=== PATIENT | female | born 1950 | race American Indian/Alaskan Native ===

== ENCOUNTER 2016-06-09 15:16 | Inpatient (IN) | payer MEDICARE ==
[2016-06-09 16:50] LABS: Basophils % (Auto) 0.4 % (0.0-1.8); Eosinophils % (Auto) 0.1 % (0.0-4.3); Hematocrit 35.6 % (30.3-42.9); Hemoglobin 11.5 gm/dl (10.1-14.3); Mean Corpuscular HGB Conc 32 % (30-34); Mean Corpuscular Hemoglobin 28 pg (28-32); Mean Corpuscular Volume 87 fl (79-97); Platelet Count 163 K/mm3 (140-440); Red Cell Distribution Width 14.2 % (13.2-15.2); White Blood Count 6.5 K/mm3 (4.5-11.0)
[2016-06-09 17:34] LABS: Anion Gap 17 mmol/L; BUN/Creatinine Ratio 10.66; Blood Urea Nitrogen 16 mg/dL (7-17); Calcium 9.5 mg/dL (8.4-10.2); Carbon Dioxide 29 mmol/L (22-30); Chloride 97.1 mmol/L (98-107); Glucose 106 mg/dL (65-100); Potassium 4.8 mmol/L (3.6-5.0); Sodium 138 mmol/L (137-145)
[2016-06-09 17:54] LABS: INR 1.05 (0.87-1.13)
[2016-06-09 17:55] LABS: Partial Thromboplastin Time 23.8 Sec. (24.2-36.6)
[2016-06-09 18:04] LABS: Magnesium 1.9 mg/dL (1.7-2.3)
--- NOTE | 2016-06-09 18:06 | Admit Criteria Form ---
Admission Criteria Documentation: SYNCOPE Clinical Indications for Admission to Inpatient Care ( Place 'X' for any and all applicable criteria): Admission is indicated for syncope and ANY ONE of the following (1)(2)(3)(4)(5) (6)(7) : [X ]I. Inpatient admission required rather than observation care (Also use Syncope: Observation Care Criteria as appropriate) because of ANY ONE of the following: [ ]a) Hemodynamic instability that is severe or persistent [ ]b) Cardiac arrhythmias of immediate concern identified or strongly suspected (eg, needs electrophysiologic study) [ ]c) Acute coronary syndrome identified (Also use Myocardial Infarction or Angina Criteria form ) [ ]d) Structural cardiac disorder (eg, aortic stenosis) suspected as cause that requires immediate correction [ ]e) Respiratory symptoms (eg, dyspnea, tachypnea) that are severe or persistent [ ]f) Neurologic signs or symptoms that are severe or persistent ( eg, stroke, seizures, altered mental status) [ ]g) Severe electrolyte abnormalities requiring inpatient care [ ]h) Supplemental oxygen or respiratory treatment for over 24 hrs that are performable only in acute inpatient setting [ ]i) IV fluid to replace significant ongoing (eg, for over 24 hrs ) losses (>3 L/m2 per day) [ ]j) Continuous intravenous infusion of anticoagulation, platelet inhibitor, vasoactive, or antiarrhythmic medication(15)(16) [ ]k) Pulmonary artery catheter monitoring [ ]l) Temporary pacemaker placement(17) [ ]m) Emergent cardioversion(18) [X ]n) Other conditions, treatment or monitoring requiring inpatient admission [ ]II. Suspicion of imminently dangerous cause (eg, rare causes like pericardial tamponade, pulmonary embolism) [ ]III. Syncope causing severe injury requiring hospitalization Extended stay beyond goal length of stay may be needed for(28) [ ]a) Dangerous arrhythmia(15)(23)(27)(29) [ ]b) Myocardial ischemia [ ]c) Seizure disorder [ ]d) Syncope-related injuries The original [employer] content created by [employer] has been revised. The portions of the content which have been revised are identified through the use of italic text or in bold, and [employer] has neither reviewed nor approved the modified material. All other unmodified content is copyright [facility] [employer]. Please see references footnoted in the original [facility] edition 2016 Admission Criteria Met: Yes
[2016-06-09 18:11] LABS: Alanine Aminotransferase 23 units/L (7-56); Albumin 4.3 g/dL (3.9-5); Albumin/Globulin Ratio 1.4 %; Alkaline Phosphatase 46 units/L (35-129); Bilirubin,Total 0.2 mg/dL (0.1-1.2); Total Protein 7.4 g/dL (6.3-8.2)
[2016-06-09 18:12] LABS: Bilirubin,Direct < 0.2 mg/dL (0-0.2)
[2016-06-09] MEDS ORDERED: TYLENOL ONE (18:46)
[2016-06-09] MEDS ORDERED: TYLENOL PO ONE (18:47)
--- NOTE | 2016-06-09 18:47 | Emergency Department Report ---
ED Syncope HPI - General Chief Complaint: Syncope Stated Complaint: SYNCOPE Time Seen by Provider: 06/09/16 16:31 - History of Present Illness Initial Comments: Patient states that she travels from [place] a couple of days ago. She is staying with her daughter. She has been feeling ill and has had a cough. She denies any hemoptysis. She denies any chest pain. She states that she has passed out numerous times in the past. He has never been hospitalized for that. She describes some episodes where she passes out on the commode and then lays on the bathroom floor and is incontinent. Apparently this is happened to her more than once. Today she went to an urgent care where she passed out in the waiting room. She was sent to this facility for evaluation of her syncopal episode. She states that her loss of consciousness was momentary and that she was not injured. Timing/Prior Episodes: remote history Precipitating Factors: Positive: other (recent respiratory illness) Context: sitting Loss of Consciousness: brief (seconds) Current Symptoms: back to normal - Related Data Allergies/Adverse Reactions: Allergies No Known Allergies Allergy (Unverified 06/09/16 15:56) Home Medications: Ambulatory Orders Furosemide [Lasix TAB] 40 mg PO QDAY 06/09/16 Lisinopril [Zestril] 40 mg PO DAILY 06/09/16 Potassium Chloride [K-Dur] 10 meq PO QDAY 06/09/16 Rosuvastatin Calcium 10 mg PO QHS 06/09/16 ED Review of Systems ROS: Stated complaint: SYNCOPE Other details as noted in HPI Constitutional: denies: chills, fever Eyes: denies: eye pain, eye discharge, vision change ENT: denies: ear pain, throat pain Respiratory: cough. denies: shortness of breath, wheezing Cardiovascular: denies: chest pain, palpitations Endocrine: no symptoms reported Gastrointestinal: denies: abdominal pain, nausea, diarrhea Genitourinary: denies: urgency, dysuria, discharge Musculoskeletal: denies: back pain, joint swelling, arthralgia Skin: denies: rash, lesions Neurological: denies: headache, weakness, paresthesias Psychiatric: denies: anxiety, depression Hematological/Lymphatic: denies: easy bleeding, easy bruising ED Past Medical Hx - Past Medical History Previous Medical History?: Yes Hx Hypertension: Yes Additional medical history: arthritis, breast CA - Surgical History Past Surgical History?: Yes Additional Surgical History: lumpectomy - Social History Smoking Status: Never Smoker - Medications Home Medications: Home Medications Medication Instructions Recorded Confirmed Last Taken Type Furosemide [Lasix TAB] 40 mg PO QDAY 06/09/16 06/09/16 Unknown History Lisinopril [Zestril] 40 mg PO DAILY 06/09/16 06/09/16 Unknown History Potassium Chloride [K-Dur] 10 meq PO QDAY 06/09/16 06/09/16 Unknown History Rosuvastatin Calcium 10 mg PO QHS 06/09/16 06/09/16 Unknown History ED Physical Exam - General Limitations: No Limitations General appearance: alert, in no apparent distress - Head Head exam: Present: atraumatic, normocephalic - Eye Eye exam: Present: normal appearance. Absent: scleral icterus - ENT ENT exam: Present: normal exam, mucous membranes moist - Neck Neck exam: Present: normal inspection - Respiratory Respiratory exam: Present: normal lung sounds bilaterally. Absent: respiratory distress - Cardiovascular Cardiovascular Exam: Present: regular rate, normal rhythm. Absent: systolic murmur, diastolic murmur, rubs, gallop - GI/Abdominal GI/Abdominal exam: Present: soft, normal bowel sounds. Absent: distended, tenderness, guarding, rebound, rigid - Extremities Exam Extremities exam: Present: normal inspection, normal capillary refill. Absent: pedal edema, joint swelling, calf tenderness - Back Exam Back exam: Present: normal inspection. Absent: CVA tenderness (R), CVA tenderness (L) - Neurological Exam Neurological exam: Present: alert, oriented X3, CN II-XII intact. Absent: motor sensory deficit - Psychiatric Psychiatric exam: Present: normal affect, normal mood - Skin Skin exam: Present: warm, dry, intact, normal color. Absent: rash ED Course Vital Signs 06/09/16 06/09/16 06/09/16 15:52 16:50 17:00 Temperature 99.9 F H Pulse Rate 80 77 94 H Respiratory 18 9 L 13 Rate Blood Pressure 119/55 103/38 O2 Sat by Pulse 95 96 98 Oximetry 06/09/16 06/09/16 06/09/16 17:10 17:20 17:30 Temperature Pulse Rate 80 78 82 Respiratory 23 22 30 H Rate Blood Pressure 98/36 98/36 98/36 O2 Sat by Pulse 96 97 98 Oximetry 06/09/16 06/09/16 17:40 18:43 Temperature 101.5 F H Pulse Rate 87 Respiratory 14 Rate Blood Pressure 98/36 O2 Sat by Pulse Oximetry - Reevaluation(s) Reevaluation #1: Recent foreign she the patient has a temperature of 100 one now. She was given Tylenol. 06/09/16 19:04 Reevaluation #2: A CT of the head and a CT angiogram were ordered. Dr. Gusman, the hospitalist, is admitting the patient. He was informed of the pending tests. 06/09/16 19:06 ED Medical Decision Making - Lab Data Result diagrams: 06/09/16 16:32 06/09/16 16:32 Laboratory Results - last 24 hr 06/09/16 06/09/16 06/09/16 16:32 16:32 17:30 WBC 6.5 RBC 4.10 Hgb 11.5 Hct 35.6 MCV 87 MCH 28 MCHC 32 RDW 14.2 Plt Count 163 Lymph % (Auto) 6.0 L [place] % (Auto) 11.2 H Eos % (Auto) 0.1 Baso % (Auto) 0.4 Lymph # 0.4 L [place] # 0.7 Eos # 0.0 Baso # 0.0 Seg Neutrophils % 82.3 H Seg Neutrophils # 5.4 PT INR APTT D-Dimer Sodium 138 Potassium 4.8 Chloride 97.1 L Carbon Dioxide 29 Anion Gap 17 BUN 16 Creatinine 1.5 H Estimated GFR 42 BUN/Creatinine Ratio 10.66 Glucose 106 H Lactic Acid Calcium 9.5 Magnesium Total Bilirubin 0.2 Direct Bilirubin < 0.2 Indirect Bilirubin 0.0 AST 25 ALT 23 Alkaline Phosphatase 46 Troponin T < 0.010 NT-Pro-B Natriuret Pep Total Protein 7.4 Albumin 4.3 Albumin/Globulin Ratio 1.4 06/09/16 06/09/16 06/09/16 17:30 17:30 17:30 WBC RBC Hgb Hct MCV MCH MCHC RDW Plt Count Lymph % (Auto) [place] % (Auto) Eos % (Auto) Baso % (Auto) Lymph # [place] # Eos # Baso # Seg Neutrophils % Seg Neutrophils # PT 13.6 INR 1.05 APTT 23.8 L D-Dimer 647.46 H Sodium Potassium Chloride Carbon Dioxide Anion Gap BUN Creatinine Estimated GFR BUN/Creatinine Ratio Glucose Lactic Acid 1.2 Calcium Magnesium 1.9 Total Bilirubin Direct Bilirubin Indirect Bilirubin AST ALT Alkaline Phosphatase Troponin T NT-Pro-B Natriuret Pep 87.92 Total Protein Albumin Albumin/Globulin Ratio - EKG Data -: EKG Interpreted by Me EKG shows normal: sinus rhythm, axis, intervals, QRS complexes, ST-T waves Rate: normal - EKG Data Interpretation: normal EKG - Radiology Data interpreted by me: Chest x-ray showed no acute process. Critical care attestation.: If time is entered above; I have spent that time in minutes in the direct care of this critically ill patient, excluding procedure time. ED Disposition Clinical Impression: Febrile illness Syncope Qualifiers: Syncope type: unspecified Qualified Code(s): R55 - Syncope and collapse Disposition: OP ADMITTED IP TO THIS HOSP Is pt being admited?: Yes Does the pt Need Aspirin: Yes Condition: Stable Instructions: Syncope (ED) Referrals: PRIMARY CARE, [Primary Care Provider] - 3-5 Days Time of Disposition: 19:07
[2016-06-09] MEDS ORDERED: BABY ASPIRIN PO ONE (19:09)
--- NOTE | 2016-06-09 20:47 | Cat Scan Report ---
FINAL REPORT PROCEDURE: CT HEAD/BRAIN WO CON TECHNIQUE: Computerized tomography of the head was performed without contrast material. HISTORY: headache COMPARISON: No prior studies are available for comparison. FINDINGS: Skull and scalp: Normal. Paranasal sinuses: Mucosal thickening is noted involving the right maxillary sinus.. Ventricles and subarachnoid spaces: Normal. Cerebrum: Mild degree bilateral periventricular nonspecific white matter hypodensity is noted. An acute intracranial hemorrhage is not identified.. Cerebellum and brainstem: No evidence of hemorrhage, acute infarction or mass. Vasculature: Atherosclerotic calcification is noted involving bilateral internal carotid arteries.. Comments: None. IMPRESSION: No acute intracranial hemorrhage. 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
--- NOTE | 2016-06-09 20:54 | Cat Scan Report ---
FINAL REPORT PROCEDURE: CT ANGIO CHEST TECHNIQUE: Computerized tomographic angiography of the chest was performed after the IV injection of iodinated nonionic contrast including image processing. The image data was postprocessed using 2-dimensional multiplanar reformatted (MPR) and 3-dimensional (MIP and/or volume rendered) techniques. HISTORY: dimer, syncope chest pain COMPARISON: No prior studies are available for comparison. FINDINGS: Heart and pericardium: Normal. Thoracic aorta: Normal. Pulmonary vasculature: Normal. Lymph nodes: No enlarged thoracic lymph nodes. Lungs: Normal. Pleural space: No effusion, thickening, or pneumothorax. Musculoskeletal structures: No significant abnormality. Upper abdominal structures: No significant abnormality. IMPRESSION: Normal Examination
--- NOTE | 2016-06-09 21:26 | History and Physical Report ---
History of Present Illness Date of examination: 06/09/16 Date of admission: 06/09/16 Chief complaint: Passed out at Urgent care facility History of present illness: Passed out at urgent care [facility].It was for a few seconds. Apparently happened multiple times in the past but was not worked up.No chest pain. No palpitations Past History Past Medical History: heart failure, hypertension, hyperlipidemia Past Surgical History: No surgical history Social history: lives with family Family history: hypertension Medications and Allergies Allergies Allergy/AdvReac Type Severity Reaction Status Date / Time No Known Allergies Allergy Unverified 06/09/16 15:56 Home Medications Medication Instructions Recorded Confirmed Last Taken Type Furosemide [Lasix TAB] 40 mg PO QDAY 06/09/16 06/09/16 Unknown History Lisinopril [Zestril] 40 mg PO DAILY 06/09/16 06/09/16 Unknown History Potassium Chloride [K-Dur] 10 meq PO QDAY 06/09/16 06/09/16 Unknown History Rosuvastatin Calcium 10 mg PO QHS 06/09/16 06/09/16 Unknown History Review of Systems All systems: negative Neurological: syncope Exam - Constitutional Vitals: Temp Pulse Resp BP Pulse Ox 101.5 F H 87 14 98/36 98 06/09/16 18:43 06/09/16 17:40 06/09/16 17:40 06/09/16 17:40 06/09/16 17:30 General appearance: Present: no acute distress, well-nourished - EENT Eyes: Present: PERRL ENT: hearing intact, clear oral mucosa - Neck Neck: Present: supple, normal ROM - Respiratory Respiratory effort: normal Respiratory: bilateral: CTA - Cardiovascular Heart Sounds: Present: S1 & S2. Absent: rub, click - Extremities Extremities: pulses symmetrical, No edema Peripheral Pulses: within normal limits - Abdominal General gastrointestinal: Present: soft, non-tender, non-distended, normal bowel sounds Female genitourinary: Present: normal - Integumentary Integumentary: Present: clear, warm, dry - Musculoskeletal Musculoskeletal: gait normal, strength equal bilaterally - Psychiatric Psychiatric: appropriate mood/affect, intact judgment & insight - Neurologic Neurologic: CNII-XII intact, moves all extremities Results - Labs CBC & Chem 7: 06/10/16 06:05 06/10/16 06:05 Labs: Abnormal lab results 06/09/16 06/09/16 06/09/16 Range/Units 16:32 16:32 17:30 Lymph % (Auto) 6.0 L (13.4-35.0) % [place] % (Auto) 11.2 H (0.0-7.3) % Lymph # 0.4 L (1.2-5.4) K/mm3 Seg Neutrophils % 82.3 H (40.0-70.0) % APTT 23.8 L (24.2-36.6) Sec. D-Dimer 647.46 H (0-234) ng/mlDDU Chloride 97.1 L (98-107) mmol/L Creatinine 1.5 H (0.7-1.2) mg/dL Glucose 106 H (65-100) mg/dL Short CBC 06/09/16 06/10/16 Range/Units 16:32 06:05 WBC 6.5 4.5 (4.5-11.0) K/mm3 Hgb 11.5 11.2 (10.1-14.3) gm/dl Hct 35.6 34.3 (30.3-42.9) % Plt Count 163 156 (140-440) K/mm3 BMP 06/09/16 06/10/16 16:32 06:05 Sodium 138 Potassium 4.8 3.8 D Chloride 97.1 L Carbon Dioxide 29 26 BUN 16 15 Creatinine 1.5 H 1.5 H Glucose 106 H 103 H Calcium 9.5 8.9 Cardiac Enzymes 06/09/16 06/09/16 06/10/16 Range/Units 16:32 21:57 00:25 Total Creatine Kinase 168 H 178 H (30-135) units/L CK-MB (CK-2) < 1.0 < 1.0 (0.0-4.0) ng/mL Troponin T < 0.010 < 0.010 < 0.010 (0.00-0.029) ng/mL Liver Function 06/09/16 06/10/16 Range/Units 17:30 06:05 Total Bilirubin 0.2 0.2 (0.1-1.2) mg/dL Direct Bilirubin < 0.2 (0-0.2) mg/dL AST 25 25 (5-40) units/L ALT 23 22 (7-56) units/L Alkaline Phosphatase 46 43 (35-129) units/L Albumin 4.3 3.8 L (3.9-5) g/dL Urine 06/09/16 Range/Units 21:00 Urine Color Yellow (Yellow) Urine pH 6.0 (5.0-7.0) Ur Specific [place] 1.041 H (1.003-1.030) Urine Protein <15 mg/dl (Negative) mg/dL Urine Glucose (UA) Neg (Negative) mg/dL - Imaging and Cardiology EKG: report reviewed (Non specific st t wave changes) Assessment and Plan - Patient Problems (1) Syncope Current Visit: Yes Status: Acute Qualifiers: Syncope type: unspecified Encounter type: E Qualified Code(s): R55 - Syncope and collapse Plan to address problem: Syncope work up -Carotid duplex scan and stress test (2) HTN (hypertension) Current Visit: Yes Status: Chronic Qualifiers: Hypertension type: essential hypertension Qualified Code(s): I10 - Essential (primary) hypertension Plan to address problem: Cont Lisinopril 40 mg po qd (3) HLD (hyperlipidemia) Current Visit: Yes Status: Chronic Qualifiers: Hyperlipidemia type: mixed hyperlipidemia Qualified Code(s): E78.2 - Mixed hyperlipidemia Plan to address problem: Cont statins (4) CHF (congestive heart failure) Current Visit: Yes Status: Acute Qualifiers: Congestive heart failure type: C Congestive heart failure chronicity: C (5) CHF (congestive heart failure), NYHA class II Current Visit: Yes Status: Chronic Qualifiers: Congestive heart failure type: combined Congestive heart failure chronicity : C Plan to address problem: cont Lasix and kcl (6) DVT prophylaxis Current Visit: Yes Status: Acute Plan to address problem: On Lovenox 40 mg sq qd
[2016-06-09] MEDS ORDERED: MILK OF MAGNESIA PO PRN (21:27)
[2016-06-09] MEDS ORDERED: DILAUDID IV PRN (21:27)
[2016-06-09] MEDS ORDERED: PERCOCET 5/325 PO PRN (21:27)
[2016-06-09] MEDS ORDERED: DULCOLAX PR PRN (21:27)
[2016-06-09] MEDS ORDERED: TYLENOL PO PRN (21:27)
[2016-06-09] MEDS ORDERED: AMBIEN PO PRN (21:27)
[2016-06-09] MEDS ORDERED: ZOFRAN IV PRN (21:27)
[2016-06-09] MEDS: ZESTRIL PO SCH (21:31)
[2016-06-09] MEDS ORDERED: SODIUM CHLORIDE FLUSH SYRINGE 10 ML IV PRN (21:34)
[2016-06-09] MEDS ORDERED: ROBITUSSIN AC PO PRN (21:45)
[2016-06-09] MEDS ORDERED: AFRIN NS PRN (21:49)
[2016-06-09] MEDS ORDERED: AFRIN NS ONE (21:52)
[2016-06-09] MEDS ORDERED: NON-FORMULARY (Rosuvastatin Calcium [Rosuvastatin Calcium] 10 MG) PO SCH (22:00)
[2016-06-09] MEDS ORDERED: NACL 0.45% 1000 ML 1,000 ML IV SCH (22:00)
[2016-06-09] MEDS: K-DUR PO SCH (22:22)
[2016-06-09] MEDS: LASIX PO SCH (22:24)
[2016-06-09 23:09] LABS: Creatine Kinase 168 units/L (30-135)
[2016-06-09 23:11] LABS: Creatine Kinase MB < 1.0 ng/mL (0.0-4.0)
[2016-06-09 23:44] LABS: Bilirubin,Urine NEG (Negative); Blood,Urine NEG (Negative); Ketones,Urine NEG (Negative); Leukocyte Esterase,Urine TR (Negative); Mucus,Urine FEW /HPF; Nitrite,Urine NEG (Negative); Protein,Urine <15 mg/dL mg/dL (Negative); Urobilinogen,Urine < 2.0 mg/dL (<2.0)
[2016-06-10] MEDS: K-DUR PO SCH ×3 (00:05→12:08)
[2016-06-10] MEDS: LASIX PO SCH ×3 (00:06→12:08)
[2016-06-10] MEDS: ZESTRIL PO SCH ×2 (00:06→10:49)
[2016-06-10 01:08] LABS: Creatine Kinase 178 units/L (30-135)
[2016-06-10 01:11] LABS: Creatine Kinase MB < 1.0 ng/mL (0.0-4.0)
[2016-06-10 07:18] LABS: Hematocrit 34.3 % (30.3-42.9); Hemoglobin 11.2 gm/dl (10.1-14.3); Mean Corpuscular HGB Conc 33 % (30-34); Mean Corpuscular Hemoglobin 28 pg (28-32); Mean Corpuscular Volume 87 fl (79-97); Platelet Count 156 K/mm3 (140-440); Red Blood Count 3.97 M/mm3 (3.65-5.03); Red Cell Distribution Width 14.3 % (13.2-15.2); White Blood Count 4.5 K/mm3 (4.5-11.0)
[2016-06-10 07:26] LABS: Albumin 3.8 g/dL (3.9-5); Albumin/Globulin Ratio 1.4 %; Bilirubin,Total 0.2 mg/dL (0.1-1.2); Calcium 8.9 mg/dL (8.4-10.2); Chloride 96.7 mmol/L (98-107); Potassium 3.8 mmol/L (3.6-5.0); Total Protein 6.6 g/dL (6.3-8.2)
--- NOTE | 2016-06-10 08:10 | XRay Report ---
AP CHEST :06/09/16 17:27:00 CLINICAL: Cough. COMPARISON:None. FINDINGS: Normal heart and pulmonary vasculature. The lungs are normally expanded and clear. The bones and soft tissues are normal. IMPRESSION: Normal chest.
[2016-06-10 08:13] LABS: Basophils % (Manual) 0 % (0.0-1.8); Blastocytes % (Manual) 0 %; Eosinophils % (Manual) 0 % (0.0-4.3)
[2016-06-10 08:15] LABS: Diff Status Complete; Platelet Estimate Cons; RBC Morphology Normal
[2016-06-10] MEDS ORDERED: LEXISCAN IV ONE ×2 (08:32→08:37)
[2016-06-10] MEDS ORDERED: NACL 0.9% 500 ML 500 ML ONE (09:35)
[2016-06-10] MEDS ORDERED: NACL 0.9% 500 ML 500 ML IV ONE (09:51)
--- NOTE | 2016-06-10 10:20 | Consultation ---
History of Present Illness Consult date: 06/10/16 Requesting physician: ROMEO SOLIMAN Consult reason: syncope History of present illness: The patient is a 66 year old female with a history of hypertension, hyperlipidemia, breast CA who presented following a syncopal episode while in the waiting room of an urgent care. She states that she has been experiencing fever, chills, cough and malaise over the past several days. She thought that she might have the flu so she went to an urgent care center. While sitting in a chair in the waiting room, she passed out for several seconds. She denies any chest pain, shortness of breath, dizziness, nausea, vomiting or diaphoresis. She reports several syncopal episodes in the past but she states they have always occurred while on the commode trying to have a bowel movement. Troponin negative x 3. BNP 87. Chest CTA negative for PE. Head CT shows no acute abnormalities. While in the stress lab this morning but prior to Lexiscan infusion, the patient's complained of feeling very weak and her blood pressure dropped to 65/41. She received 500cc NS bolus with improvement in her BP to 110/ 71. Of note, she has tested positive for influenza A. Past History Past Medical History: hypertension, hyperlipidemia, other (breast CA s/p radiation and chemo (7 yrs. ago)) Past Surgical History: Other (lumpectomy) Social history: denies: smoking, alcohol abuse, prescription drug abuse, IV drug use Family history: no significant family history Medications and Allergies Allergies Allergy/AdvReac Type Severity Reaction Status Date / Time No Known Allergies Allergy Unverified 06/09/16 15:56 Home Medications Medication Instructions Recorded Confirmed Last Taken Type Furosemide [Lasix TAB] 40 mg PO QDAY 06/09/16 06/09/16 Unknown History Lisinopril [Zestril] 40 mg PO DAILY 06/09/16 06/09/16 Unknown History Potassium Chloride [K-Dur] 10 meq PO QDAY 06/09/16 06/09/16 Unknown History Rosuvastatin Calcium 10 mg PO QHS 06/09/16 06/09/16 Unknown History Active Meds: Active Medications Acetaminophen (Tylenol) 650 mg PO Q4H PRN PRN Reason: Pain MILD(1-3)/Fever >100.5/WONG Last Admin: 06/10/16 05:33 Dose: 650 mg Atorvastatin Calcium (Lipitor) 20 mg PO QHS [facility] Last Admin: 06/10/16 00:04 Dose: 20 mg Bisacodyl (Dulcolax) 10 mg VT QDAY PRN PRN Reason: Constipation unrelieved by MOM Furosemide (Lasix) 40 mg PO QDAY [facility] Last Admin: 06/10/16 00:06 Dose: 40 mg Hydromorphone HCl (Dilaudid) 0.5 mg IV Q3H PRN PRN Reason: Pain , Severe (7-10) Sodium Chloride (Nacl 0.45% 1000 Ml) 1,000 mls @ 75 mls/hr IV DIRECT [facility] Last Admin: 06/10/16 00:11 Dose: 75 mls/hr Sodium Chloride (Nacl 0.9% 500 Ml) 500 mls @ 999 mls/hr IV ONCE ONE Stop: 06/10/16 10:21 Last Admin: 06/10/16 09:35 Dose: 999 mls/hr Lisinopril (Zestril) 40 mg PO DAILY [facility] Last Admin: 06/10/16 00:06 Dose: 40 mg Magnesium Hydroxide (Milk Of Magnesia) 30 ml PO Q4H PRN PRN Reason: Constipation Ondansetron HCl (Zofran) 4 mg IV Q8H PRN PRN Reason: N/V unrelieved by Reglan Oxycodone/Acetaminophen (Percocet 5/325) 1 tab PO Q6H PRN PRN Reason: Pain, Moderate (4-6) Oxymetazoline HCl (Afrin) 1 - 2 spray NS BID PRN PRN Reason: Nasal Congestion Stop: 06/12/16 21:48 Last Admin: 06/10/16 00:26 Dose: 1 spray Pneumococcal Polyvalent Vaccine (Pneumovax 23) 0.5 ml IM .ONCE ONE Stop: 06/10/16 12:01 Potassium Chloride (K-Dur) 10 meq PO QDAY [facility] Last Admin: 06/10/16 00:05 Dose: 10 meq Pseudoephedrine/Acetam/Chlorphenir (Robitussin Ac) 10 ml PO QID PRN PRN Reason: Cough Stop: 06/12/16 21:44 Last Admin: 06/10/16 00:10 Dose: 10 ml Sodium Chloride (Sodium Chloride Flush Syringe 10 Ml) 10 ml IV PRN PRN PRN Reason: LINE FLUSH Zolpidem Tartrate (Ambien) 5 mg PO QHS PRN PRN Reason: Insomnia Review of Systems Constitutional: fever, chills, fatigue, weakness, malaise, lethargy Ears, nose, mouth and throat: no nasal congestion, no nasal discharge, no sinus pressure Cardiovascular: syncope, no chest pain, no orthopnea, no palpitations, no shortness of breath, no dyspnea on exertion, no leg edema Respiratory: cough with sputum, no shortness of breath, no dyspnea on exertion, no wheezing Gastrointestinal: no abdominal pain, no nausea, no vomiting, no diarrhea Genitourinary Female: no dysuria, no urgency Musculoskeletal: no neck stiffness, no neck pain Integumentary: no rash, no pruritis Neurological: syncope, no parathesias, no numbness, no tingling Endocrine: no cold intolerance, no heat intolerance Hematologic/Lymphatic: no easy bruising, no easy bleeding Allergic/Immunologic: no urticaria, no wheezing Physical Examination Vital Signs Temp Pulse Resp BP Pulse Ox 99.9 F H 80 18 119/55 95 06/09/16 15:52 06/09/16 15:52 06/09/16 15:52 06/09/16 15:52 06/09/16 15:52 General appearance: no acute distress HEENT: Positive: Normocephaly, Mucus Membranes Moist Neck: Positive: neck supple, trachea midline Cardiac: Positive: Reg Rate and Rhythm, S1/S2 Lungs: Positive: clear to auscultation Neuro: Positive: Grossly Intact Abdomen: Positive: Soft, Active Bowel Sounds. Negative: Tender Skin: Positive: Clear. Negative: Rash Extremities: Present: normal. Absent: edema Results 06/10/16 06:05 06/10/16 06:05 Cardiac Enzymes 06/09/16 06/10/16 06/10/16 Range/Units 21:57 00:25 06:05 AST 25 (5-40) units/L CK-MB (CK-2) < 1.0 < 1.0 (0.0-4.0) ng/mL CBC 06/10/16 Range/Units 06:05 WBC 4.5 (4.5-11.0) K/mm3 RBC 3.97 (3.65-5.03) M/mm3 Hgb 11.2 (10.1-14.3) gm/dl Hct 34.3 (30.3-42.9) % Plt Count 156 (140-440) K/mm3 Comprehensive Metabolic Panel 06/10/16 Range/Units 06:05 Potassium 3.8 D (3.6-5.0) mmol/L Carbon Dioxide 26 (22-30) mmol/L BUN 15 (7-17) mg/dL Creatinine 1.5 H (0.7-1.2) mg/dL Glucose 103 H (65-100) mg/dL Calcium 8.9 (8.4-10.2) mg/dL AST 25 (5-40) units/L ALT 22 (7-56) units/L Alkaline Phosphatase 43 (35-129) units/L Total Protein 6.6 (6.3-8.2) g/dL Albumin 3.8 L (3.9-5) g/dL - Imaging and Cardiology Echo: pending EKG: image reviewed EKG interpretations - Telemetry EKG Rhythm: Sinus Rhythm - EKG Sinus rhythms and dysrhythmias: sinus rhythm Assessment and Plan Syncope no chest pain or EKG changes head CT/Chest CTA/carotids negative obtain orthostatics await echo findings continue to observe for arrhythmias on the monitor Transient hypotension-->resolved with NS bolus Influzena A management per primary History of hypertension Hyperlipidemia History of breast CA ~7 yrs. ago s/p lumpectomy/radiation/chemo The patient has been seen in conjunction with Dr. Peres who agrees with the assessment and plan of care. Thank you Dr. Soilman for allowing us to participate in the care of this patient.
[2016-06-10] MEDS ORDERED: PNEUMOVAX 23 IM ONE (12:00)
--- NOTE | 2016-06-10 14:43 | Progress Note ---
Assessment and Plan Assessment and plan: Syncope Flu. patient pos for Influenza. Start Tamiflu History Interval history: Passed out Hospitalist Physical - Constitutional Vitals: Temp Pulse Resp BP Pulse Ox 101.2 F H 65 20 121/72 100 06/10/16 04:00 06/10/16 10:14 06/10/16 10:14 06/10/16 10:14 06/10/16 10:14 General appearance: Present: no acute distress, obese - EENT Eyes: Present: PERRL ENT: hearing intact, clear oral mucosa - Neck Neck: Present: supple - Respiratory Respiratory effort: normal Respiratory: bilateral: CTA, negative: diminished, rales, rhonchi, wheezing - Cardiovascular Rhythm: regular Heart Sounds: Present: S1 & S2 (S1 and S2 reg, no murmurs) - Extremities Extremities: no ischemia, No edema, normal temperature, normal color - Abdominal General gastrointestinal: soft, non-tender, non-distended, normal bowel sounds - Psychiatric Psychiatric: appropriate mood/affect - Neurologic Neurologic: moves all extremities, other (AAO x 3) Results - Labs CBC & Chem 7: 06/10/16 06:05 06/10/16 06:05 Labs: Laboratory Last Values WBC 4.5 K/mm3 (4.5-11.0) 06/10/16 06:05 RBC 3.97 M/mm3 (3.65-5.03) 06/10/16 06:05 Hgb 11.2 gm/dl (10.1-14.3) 06/10/16 06:05 Hct 34.3 % (30.3-42.9) 06/10/16 06:05 MCV 87 fl (79-97) 06/10/16 06:05 MCH 28 pg (28-32) 06/10/16 06:05 MCHC 33 % (30-34) 06/10/16 06:05 RDW 14.3 % (13.2-15.2) 06/10/16 06:05 Plt Count 156 K/mm3 (140-440) 06/10/16 06:05 Lymph % (Auto) 6.0 % (13.4-35.0) L 06/09/16 16:32 [place] % (Auto) Delivery Room Clerk 06/10/16 06:05 Eos % (Auto) 0.1 % (0.0-4.3) 06/09/16 16:32 Baso % (Auto) 0.4 % (0.0-1.8) 06/09/16 16:32 Lymph # 0.4 K/mm3 (1.2-5.4) L 06/09/16 16:32 [place] # 0.7 K/mm3 (0.0-0.8) 06/09/16 16:32 Eos # 0.0 K/mm3 (0.0-0.4) 06/09/16 16:32 Baso # 0.0 K/mm3 (0.0-0.1) 06/09/16 16:32 Add Manual Diff Complete 06/10/16 06:05 Total Counted 100 06/10/16 06:05 Seg Neutrophils % 82.3 % (40.0-70.0) H 06/09/16 16:32 Seg Neuts % (Manual) 73.0 % (40.0-70.0) H 06/10/16 06:05 Band Neutrophils % 0 % 06/10/16 06:05 Lymphocytes % (Manual) 14.0 % (13.4-35.0) 06/10/16 06:05 Reactive Lymphs % (Man) 3.0 % 06/10/16 06:05 Monocytes % (Manual) 10.0 % (0.0-7.3) H 06/10/16 06:05 Eosinophils % (Manual) 0 % (0.0-4.3) 06/10/16 06:05 Basophils % (Manual) 0 % (0.0-1.8) 06/10/16 06:05 Metamyelocytes % 0 % 06/10/16 06:05 Myelocytes % 0 % 06/10/16 06:05 Promyelocytes % 0 % 06/10/16 06:05 Blast Cells % 0 % 06/10/16 06:05 Nucleated RBC % Not Reportable 06/10/16 06:05 Seg Neutrophils # 5.4 K/mm3 (1.8-7.7) 06/09/16 16:32 Seg Neutrophils # Man 3.3 K/mm3 (1.8-7.7) 06/10/16 06:05 Band Neutrophils # 0.0 K/mm3 06/10/16 06:05 Lymphocytes # (Manual) 0.6 K/mm3 (1.2-5.4) L 06/10/16 06:05 Abs React Lymphs (Man) 0.1 K/mm3 06/10/16 06:05 Monocytes # (Manual) 0.5 K/mm3 (0.0-0.8) 06/10/16 06:05 Eosinophils # (Manual) 0.0 K/mm3 (0.0-0.4) 06/10/16 06:05 Basophils # (Manual) 0.0 K/mm3 (0.0-0.1) 06/10/16 06:05 Metamyelocytes # 0.0 K/mm3 06/10/16 06:05 Myelocytes # 0.0 K/mm3 06/10/16 06:05 Promyelocytes # 0.0 K/mm3 06/10/16 06:05 Blast Cells # 0.0 K/mm3 06/10/16 06:05 WBC Morphology Not Reportable 06/10/16 06:05 Hypersegmented Neuts Not Reportable 06/10/16 06:05 Hyposegmented Neuts Not Reportable 06/10/16 06:05 Hypogranular Neuts Not Reportable 06/10/16 06:05 Smudge Cells Not Reportable 06/10/16 06:05 Toxic Granulation Not Reportable 06/10/16 06:05 Toxic Vacuolation Not Reportable 06/10/16 06:05 Dohle Bodies Not Reportable 06/10/16 06:05 Pelger-Huet Anomaly Not Reportable 06/10/16 06:05 Paramjit Rods Not Reportable 06/10/16 06:05 Platelet Estimate Cons 06/10/16 06:05 Clumped Platelets Not Reportable 06/10/16 06:05 Plt Clumps, EDTA Not Reportable 06/10/16 06:05 Large Platelets Not Reportable 06/10/16 06:05 Giant Platelets Not Reportable 06/10/16 06:05 Platelet Satelliting Not Reportable 06/10/16 06:05 Plt Morphology Comment Not Reportable 06/10/16 06:05 RBC Morphology Normal 06/10/16 06:05 Dimorphic RBCs Not Reportable 06/10/16 06:05 Polychromasia Not Reportable 06/10/16 06:05 Hypochromasia Not Reportable 06/10/16 06:05 Poikilocytosis Not Reportable 06/10/16 06:05 Anisocytosis Not Reportable 06/10/16 06:05 Microcytosis Not Reportable 06/10/16 06:05 Macrocytosis Not Reportable 06/10/16 06:05 Spherocytes Not Reportable 06/10/16 06:05 Pappenheimer Bodies Not Reportable 06/10/16 06:05 Sickle Cells Not Reportable 06/10/16 06:05 Target Cells Not Reportable 06/10/16 06:05 Tear Drop Cells Not Reportable 06/10/16 06:05 Ovalocytes Not Reportable 06/10/16 06:05 Helmet Cells Not Reportable 06/10/16 06:05 [place] Bodies Not Reportable 06/10/16 06:05 [place] Rings Not Reportable 06/10/16 06:05 [place] Cells Not Reportable 06/10/16 06:05 Bite Cells Not Reportable 06/10/16 06:05 Crenated Cell Not Reportable 06/10/16 06:05 Elliptocytes Not Reportable 06/10/16 06:05 Acanthocytes (Spur) Not Reportable 06/10/16 06:05 Rouleaux Not Reportable 06/10/16 06:05 Hemoglobin C Crystals Not Reportable 06/10/16 06:05 Schistocytes Not Reportable 06/10/16 06:05 Malaria parasites Not Reportable 06/10/16 06:05 [place] Bodies Not Reportable 06/10/16 06:05 Hem Pathologist Commnt No 06/10/16 06:05 PT 13.6 Sec. (12.2-14.9) 06/09/16 17:30 INR 1.05 (0.87-1.13) 06/09/16 17:30 APTT 23.8 Sec. (24.2-36.6) L 06/09/16 17:30 D-Dimer 647.46 ng/mlDDU (0-234) H 06/09/16 17:30 Sodium 138 mmol/L (137-145) 06/09/16 16:32 Potassium 3.8 mmol/L (3.6-5.0) D 06/10/16 06:05 Chloride 97.1 mmol/L (98-107) L 06/09/16 16:32 Carbon Dioxide 26 mmol/L (22-30) 06/10/16 06:05 Anion Gap 17 mmol/L 06/09/16 16:32 BUN 15 mg/dL (7-17) 06/10/16 06:05 Creatinine 1.5 mg/dL (0.7-1.2) H 06/10/16 06:05 Estimated GFR 42 ml/min 06/10/16 06:05 BUN/Creatinine Ratio 10.00 % 06/10/16 06:05 Glucose 103 mg/dL (65-100) H 06/10/16 06:05 Lactic Acid 1.2 mmol/L (0.7-2.0) 06/09/16 17:30 Calcium 8.9 mg/dL (8.4-10.2) 06/10/16 06:05 Magnesium 1.9 mg/dL (1.7-2.3) 06/09/16 17:30 Total Bilirubin 0.2 mg/dL (0.1-1.2) 06/10/16 06:05 Direct Bilirubin < 0.2 mg/dL (0-0.2) 06/09/16 17:30 Indirect Bilirubin 0.0 mg/dL 06/09/16 17:30 AST 25 units/L (5-40) 06/10/16 06:05 ALT 22 units/L (7-56) 06/10/16 06:05 Alkaline Phosphatase 43 units/L (35-129) 06/10/16 06:05 Total Creatine Kinase 178 units/L (30-135) H 06/10/16 00:25 CK-MB (CK-2) < 1.0 ng/mL (0.0-4.0) 06/10/16 00:25 CK-MB (CK-2) Rel Index 0.5 (0-4) 06/10/16 00:25 Troponin T < 0.010 ng/mL (0.00-0.029) 06/10/16 00:25 NT-Pro-B Natriuret Pep 87.92 pg/mL (0-900) 06/09/16 17:30 Total Protein 6.6 g/dL (6.3-8.2) 06/10/16 06:05 Albumin 3.8 g/dL (3.9-5) L 06/10/16 06:05 Albumin/Globulin Ratio 1.4 % 06/10/16 06:05 Urine Color Yellow (Yellow) 06/09/16 21:00 Urine Turbidity Slightly-cloudy (Clear) 06/09/16 21:00 Urine pH 6.0 (5.0-7.0) 06/09/16 21:00 Ur Specific [place] 1.041 (1.003-1.030) H 06/09/16 21:00 Urine Protein <15 mg/dl mg/dL (Negative) 06/09/16 21:00 Urine Glucose (UA) Neg mg/dL (Negative) 06/09/16 21:00 Urine Ketones Neg mg/dL (Negative) 06/09/16 21:00 Urine Blood Neg (Negative) 06/09/16 21:00 Urine Nitrite Neg (Negative) 06/09/16 21:00 Urine Bilirubin Neg (Negative) 06/09/16 21:00 Urine Urobilinogen < 2.0 mg/dL (<2.0) 06/09/16 21:00 Ur Leukocyte Esterase Tr (Negative) 06/09/16 21:00 Urine WBC (Auto) 4.0 /HPF (0.0-6.0) 06/09/16 21:00 Urine RBC (Auto) 2.0 /HPF (0.0-6.0) 06/09/16 21:00 U Epithel Cells (Auto) 20.0 /HPF (0-13.0) H 06/09/16 21:00 Urine Mucus Few /HPF 06/09/16 21:00
[2016-06-10] MEDS: TAMIFLU PO SCH ×2 (17:29→21:09)
[2016-06-11] MEDS: K-DUR PO SCH (10:09)
[2016-06-11] MEDS: TAMIFLU PO SCH (10:10)
[2016-06-11] MEDS: ZESTRIL PO SCH (10:11)
--- NOTE | 2016-06-11 10:41 | Discharge Summary ---
Providers - Providers Date of Admission: 06/09/16 21:27 Date of discharge: 06/11/16 Attending physician: ROMEO SOLIMAN 06/09/16 Consult to Cardiac Rehabilitation [CONS] Routine Reason For Exam: Phase I 06/10/16 12:18 Consult to Physician [CONS] Routine Consulting Provider: SARTHAK PERES Reason For Exam: syncope Place consult to:: Dr. Peres Notified:: RAMSEY Yepez Phone number called:: IN HOUSE Was contact made?: Yes If yes, spoke with:: RAMSEY Time called:: 13:36 Primary care physician: COURT CLERK Hospitalization Condition: Good Disposition: DISCHARGED TO HOME OR SELFCARE - Discharge Diagnoses (1) Vasovagal syncope Status: Acute (2) Influenza A Status: Acute Exam - Constitutional Vitals: Temp Pulse Resp BP Pulse Ox 99 F 104 H 20 150/84 97 06/11/16 08:00 06/11/16 10:11 06/11/16 08:00 06/11/16 10:11 06/11/16 08:00 General appearance: Present: no acute distress Plan Activity: advance as tolerated Diet: low fat, low cholesterol, low salt Additional Instructions: 1.Follow up with PCP in 1 week. Follow up with: PRIMARY CARE, [Primary Care Provider] - 3-5 Days Prescriptions: Oseltamivir [Tamiflu] 75 mg PO BID #8 capsule
[2016-06-11 11:47] VITALS: BP 122/60
--- NOTE | 2016-06-11 12:11 | Progress Note ---
Assessment and Plan Syncope no chest pain or EKG changes head CT/Chest CTA/carotids negative orthostatics negative no arrhythmias noted on the monitor Echo 06/2016: EF 55-60%, mild-moderate AR, mild TR Transient hypotension-->resolved with NS bolus Influzena A management per primary Hypertension Hyperlipidemia History of breast CA ~7 yrs. ago s/p lumpectomy/radiation/chemo Stable cardiac status. Patient may be discharged from a cardiac standpoint. The patient has been seen in conjunction with Dr. Peres who agrees with the assessment and plan of care. Subjective Date of service: 06/11/16 Principal diagnosis: syncope Interval history: The patient is resting comfortably in bed. She c/o cough and malaise. Sinus rhythm on the monitor. Objective Last Vital Signs Temp 98.5 F 06/11/16 11:47 Pulse 78 06/11/16 11:47 Resp 20 06/11/16 11:47 BP 122/60 06/11/16 11:47 Pulse Ox 97 06/11/16 08:00 - Physical Examination General: No Apparent Distress HEENT: Positive: Normocephaly, Mucus Membranes Moist Neck: Positive: neck supple, trachea midline Cardiac: Positive: Reg Rate and Rhythm, S1/S2 Lungs: Positive: clear to auscultation Neuro: Positive: Grossly Intact Abdomen: Positive: Soft, Active Bowel Sounds. Negative: Tender Skin: Positive: Clear. Negative: Rash Extremities: Present: normal. Absent: edema - Imaging and Cardiology EKG: image reviewed Echo: report reviewed (06/2016: EF 55-60%, mild-moderate AR, mild TR) - Telemetry EKG Rhythm: Sinus Rhythm - EKG Sinus rhythms and dysrhythmias: sinus rhythm
--- NOTE | 2016-06-12 07:48 | Vascular Lab Report ---
CAROTID DUPLEX STUDY: RIGHT PSVEDV CCA [id number] CCA DIST:7522 ICA PROX:8221 ICA MID:7830 ICA DIST:5820 ECA: 1069 VERT: 72 25 LEFT PSVEDV CCA PROX:[id number] CCA DIST:[id number] ICA PROX:9426 ICA MID:[id number] ICA DIST:9232 ECA: 14326 VERT: 56 21 REASON FOR EXAM: Carotid artery stenosis/syncope. COMMENTS ON THE RIGHT: Doppler frequency analysis is consistent with 16 to 49 percent diameter reduction of the internal carotid artery. Minimal amount of plaque is seen. The common carotid artery is patent. The external carotid artery is patent. The vertebral artery has antegrade flow. COMMENTS ON THE LEFT: Doppler frequency analysis is consistent with 16 to 49 percent diameter reduction of the internal carotid artery. Minimal amount of plaque is seen. The common carotid artery is patent. The external carotid artery is patent. The vertebral artery has antegrade flow. IMPRESSION: Less than 50% diameter reduction in the internal carotid arteries bilaterally. Consider repeat carotid artery duplex in 12 months.
== END 2016-06-11 13:30 | disposition home or self-care (01) | DRG 312 ==
LOC: ED 15:16 → 3A 21:27
PROVIDERS: ADMIT Internal Medicine; ATTEND Internal Medicine
DX: R55 Syncope and collapse (principal); I95.9 Hypotension, unspecified; I11.9 Hypertensive heart disease without heart failure; I50.9 Heart failure, unspecified; E78.2 Mixed hyperlipidemia; J11.1 Influenza due to unidentified influenza virus with other respiratory manifestations; Z85.3 Personal history of malignant neoplasm of breast; Z82.49 Family history of ischemic heart disease and other diseases of the circulatory system
CPT/HCPCS: 36415; 70450; 71010; 71275; 80048; 80053; 80074; 81001; 82140; 82550; 82553; 83735; 83880; 84484; 85007; 85025; 85379; 85610; 85730; 87040; 87086; 87400; 90732; 93005; 93010; 93306; 93880; A9270-GY; J2785; J7040; Q9967